=== PATIENT | male | born 1955 | race Two or more races ===

== ENCOUNTER 2025-04-30 11:53 | Emergency (ER) | payer OTHER ==
[2025-04-30 11:59] VITALS: RESP 18; BMI 31.0
[2025-04-30] MEDS ORDERED: ACETAMINOPHEN INJECTION 100 ML ONE (12:33)
[2025-04-30] MEDS: SODIUM CHLORIDE 0.9% 1000 ML INFUS.BAG IV ONE (12:49)
[2025-04-30] MEDS: ACETAMINOPHEN 1000 MG/100 ML BAG IVPB ONE (12:49)
[2025-04-30 12:52] LABS: ABSOLUTE IMMATURE GRANULOCYTES 0.06 x10^3/uL (0.0-0.031); BASOPHILS # 0.03 x10^3/uL (0.01-0.08); EOSINOPHIL % 0.2 % (0.8-7.0); EOSINOPHILS # 0.03 x10^3/uL (0.04-0.54); MCHC 32.0 g/dl (32.3-36.5); MEAN CELL VOLUME 91.0 fl (79.0-92.2); MEAN PLT VOLUME 10.3 fl (9.4-12.4); MONOCYTE # 1.07 x10^3/uL (0.30-0.82); MONOCYTE % 8.0 % (5.3-12.2); RDW 13.6 % (12.2-16.4)
[2025-04-30 12:55] LABS: EPI CELLS 19 /uL (0-25.1); HYALINE CASTS 0 /uL (0-3.1); URINE APPEARANCE CLOUDY; URINE BACTERIA 8707 /uL (0-1359); URINE BILIRUBIN NEGATIVE (NEGATIVE); URINE COLOR ORANGE; URINE GLUCOSE (UA) NEGATIVE (NEGATIVE); URINE KETONE 1+ (NEGATIVE); URINE LEUK ESTERASE 2+ (NEGATIVE); URINE NITRITE POSITIVE (NEGATIVE); URINE PROTEIN 3+ (NEGATIVE); URINE RBC 2542 /uL (0-23.9); URINE UROBILINOGEN 1.0 mg/dL (0.2-1.0); URINE WBC 2202 /uL (0-25.8)
[2025-04-30 13:21] LABS: GLUCOSE,RANDOM 106.0 mg/dL (74-106)
[2025-04-30 13:22] LABS: TOT PROT 7.0 g/dl (6.4-8.2)
[2025-04-30 13:23] LABS: CO2 25.0 mmol/L (21-32)
[2025-04-30 13:24] LABS: ALK PHOS 57.0 U/L (40-150)
[2025-04-30 13:27] LABS: CREATININE 0.93 mg/dL (0.55-1.3); SGOT/AST 16.0 U/L (5-34); SGPT/ALT 18.0 U/L (0-55)
[2025-04-30 13:49] LABS: HCV DIAGNOSTIC IN-HOUSE W/RFLX NON-REACTIVE (NONREACTIVE); HIV INTERPRETATION NEGATIVE (NEGATIVE)
[2025-04-30] MEDS ORDERED: CEFTRIAXONE 1 GM/50 ML BAG ONE (14:15)
[2025-04-30] MEDS: CEFTRIAXONE 1 GM in DEXTROSE 5%-WATER - 100 ML IVPB ONE (14:30)
[2025-04-30 15:45] VITALS: BP 127/84; PULSE 69; TEMP 98.3
== END 2025-04-30 16:14 | disposition home or self-care (01) ==
LOC: JER 11:53
PROC: 3E03329 Introduction of Other Anti-infective into Peripheral Vein, Percutaneous Approach (ICD-10-PCS; principal; 2025-04-30)
PROC: 3E033NZ Introduction of Analgesics, Hypnotics, Sedatives into Peripheral Vein, Percutaneous Approach (ICD-10-PCS; 2025-04-30)
DX: N13.6 Pyonephrosis (principal); R31.9 Hematuria, unspecified; R30.0 Dysuria; R51.9 Headache, unspecified; R10.9 Unspecified abdominal pain
CPT/HCPCS: 36415; 74176-TC; 80053; 81003; 83735; 84100; 85025; 86803; 87086; 87389; 99285-25